=== PATIENT | female | born 1965 | race Caucasian/White ===

== ENCOUNTER → 2020-02-24 09:26 | Outpatient (BNVA) | payer OTHER, SELFPAY | PROVIDERS: PCP Internal Medicine; Visit Provider Orthopaedic Surgery | DX: M75.51 Bursitis of right shoulder (principal) | CPT/HCPCS: 20610; 99202; J1100 ==

== ENCOUNTER 2020-03-07 21:13 | Emergency (ER) | payer OTHER, SELFPAY ==
[2020-03-07 21:21] VITALS: BP 126/87; PULSE 87; RESP 20; TEMP 36.9; O2SAT 96; BMI 29.0
--- NOTE | 2020-03-07 21:34 | PC.NURSE ---
Family requesting to be contacted with updates, [place] [phone].
[2020-03-07 23:17] VITALS: BP 132/75; PULSE 77; RESP 18; O2SAT 98
--- NOTE | 2020-03-07 23:22 | ED_ITS ---
HPI - General Adult General Chief complaint: Fever Stated complaint: Covid Symptoms Time Seen by Provider: 03/07/20 22:43 Source: patient Mode of arrival: ambulatory Limitations: no limitations History of Present Illness HPI narrative: Patient comes to emergency room requesting to be tested for COVID-19. Patient states family member recently tested positive for COVID-19. Patient states that today she started complaining of subjective fever, dry cough, headache and body aches. Patient denies shortness of breath, no chest pain. MD complaint: COVID like symptoms Related Data Home Medications Medication Instructions Recorded Confirmed citalopram 20 mg tablet 20 mg PO DAILY 01/01/20 03/03/20 gabapentin 600 mg tablet 600 mg PO BID 01/01/20 03/03/20 lidocaine 5 % topical patch 1 patch TOPICAL DAILY PRN 01/01/20 03/03/20 omeprazole 40 mg capsule,delayed 40 mg PO DAILY 01/01/20 03/03/20 release sumatriptan succinate 25 mg tablet 25 mg PO DAILY tab 01/01/20 03/03/20 Previous Rx's Medication Instructions Recorded ibuprofen 600 mg tablet 600 mg PO Q8H PRN #90 tab 02/24/20 amitriptyline 25 mg tablet 25 mg PO BEDTIME 90 Days #90 tab 03/03/20 Allergies Allergy/AdvReac Type Severity Reaction Status Date / Time No Known Allergies Allergy Verified 03/07/20 21:17 [No Known Allergies*] Review of Systems Review of Systems: Constitutional : No Weight loss, subjective fever, chills, fatigue, generalized malaise ENT/Mouth : No Hearing loss, No Ear Pain, No Nasal Congestion, No Sinus Pain, No Hoarseness, complaining of sore throat, No Rhinorrhea, No Swallowing Difficulty Eyes: No Eye Pain, No Swelling, No Redness, No Foreign Body, No Discharge, No Vision Changes Cardiovascular : No Chest Pain, No SOB, No Dyspnea on Exertion, No Orthopnea, No Edema, No Palpitations Respiratory : Complaining of dry Cough, No Sputum, No Wheezing, No Smoke Exposure, No Dyspnea Gastrointestinal : No Nausea, No Vomiting, No Diarrhea, No Constipation, No a bdominal Pain, No Hematochezia, No Melena Genitourinary : no irregular bleeding, No Dysuria, No Urinary Frequency, No Hematuria, No Urinary Incontinence, No Urgency, No Flank Pain, No Urinary Flow Changes, No Hesitancy Musculoskeletal : No joint pain, complaining of Myalgias, No Joint Swelling Skin : No Skin Lesions, No rash Neuro : No Weakness, No Numbness, No Paresthesias, No Loss of Consciousness, No Dizziness, complaining of Headache Psych : No Anxiety/Panic, No Depression, No SI/HI/AH/VH, No Social Issues, Heme/Lymph: No Bruising, No Bleeding,No Lymphadenopathy Endocrine : No Polyuria, No Polydipsia, No Temperature Intolerance [facility] Past Medical History Medical History Bursitis of right shoulder Headache syndrome Shoulder pain, right Strain of right trapezius muscle Surgical History Ankle fracture, left Family History Family History Father No problems noted. Mother No problems noted. Brother No problems noted. Brother No problems noted. Brother No problems noted. Brother No problems noted. Brother No problems noted. Son No problems noted. Son No problems noted. Son No problems noted. Daughter No problems noted. Daughter No problems noted. Social History Social History Alcohol intake: never Smoking Status: Former smoker Advance Directives: No Advance Directives Information Provided: No Current occupational status: employed and unemployed Current occupation: right handed Physical Exam Vital Signs: Vital Signs: Last Vital Signs Temp 98.5 F 03/07/20 21:21 Pulse 77 03/07/20 23:17 Resp 18 03/07/20 23:17 BP 132/75 03/07/20 23:17 Pulse Ox 98 03/07/20 23:17 Body Mass Index 29.0 Appearance: Alert. Oriented X3. No acute distress. Eyes: Pupils equal, round and reactive to light. ENT: Pharynx normal. Neck: Normal inspection. Neck supple. No lymph nodes noted. No crepitus CVS: Normal heart rate and rhythm. Pulses normal. Normal S1 and S2 Respiratory: No respiratory distress. Breath sounds normal. No Wheezing. No rales Abdomen: Soft and nontender. No rigidity. No distention. good BS x4 Skin: Skin warm and dry. Normal skin color. Normal skin turgor. Extremities: No lower extremity edema. No lower extremity edema. No Lacerations. No Rash Neuro: Oriented X 3. No motor deficit. No sensory deficit. Moving all extermities. No slurred speech. Course Course Course Narrative: Patient's oxygen saturation 98% on room air, normal vitals. Patient discharged home. Patient was tested for COVID-19, explained to the patient that her results will be available within 72 hours and be called home if she tests positive. Discharge Plan Discharge Clinical Impression: Acute viral syndrome Patient Disposition: Home, Self-Care Instructions: Viral Syndrome (ED) Additional Instructions: You were tested for COVID-19. If he tests positive, the results will be communicated to you in the next 72 hours. In the meantime, remains self isolated, always very mask. Please follow-up with your primary care physician tomorrow. If you have any worsening or new symptoms, please return to the emergency room or call 911 Prescriptions: No Action omeprazole 40 mg capsule,delayed release(DR/EC) 40 mg PO DAILY RF: 0 gabapentin 600 mg tablet 600 mg PO BID RF: 0 lidocaine 5 % adhesive patch,medicated 1 patch topical DAILY PRNRF: 0 citalopram 20 mg tablet 20 mg PO DAILY RF: 0 sumatriptan succinate 25 mg tablet 25 mg PO DAILY RF: 0 amitriptyline 25 mg tablet 25 mg PO BEDTIME 90 Days Qty: 90 RF: 0 ibuprofen 600 mg tablet 600 mg PO Q8H PRN (Reason: pain) Qty: 90 RF: 1
[2020-03-08 00:15] LABS: Influenza A PCR NEGATIVE (Negative); Influenza B PCR NEGATIVE (Negative); Resp Syncy Virus RNA Qual PCR NEGATIVE (Negative)
[2020-03-08 00:20] LABS: SARS COV2 PCR INHOUSE POSITIVE (Negative)
== END 2020-03-07 23:34 | disposition home or self-care (01) ==
PROVIDERS: Emergency Provider Emergency Medicine; PCP Internal Medicine
DX: B34.9 Viral infection, unspecified (principal); R50.9 Fever, unspecified; Z20.822 Contact with and (suspected) exposure to COVID-19; Z79.899 Other long term (current) drug therapy; Z87.891 Personal history of nicotine dependence
CPT/HCPCS: 0241U; 36415; 99283

== ENCOUNTER → 2020-06-04 15:25 | Outpatient (BNVA) | payer OTHER, SELFPAY | PROVIDERS: PCP Internal Medicine; Visit Provider Anesthesiology | DX: M47.812 Spondylosis without myelopathy or radiculopathy, cervical region (principal); Z79.899 Other long term (current) drug therapy | CPT/HCPCS: 99212 ==

== ENCOUNTER 2020-07-01 14:16 | Outpatient (REF) | payer OTHER, SELFPAY ==
--- NOTE | ~2020-07-01 | XR_ITS ---
EXAMINATION: XR KNEE, RIGHT CLINICAL INFORMATION: Pain right knee. COMPARISON: None TECHNIQUE: Four views of the right knee. FINDINGS: Bones and soft tissues are normal. No fracture or joint effusion. Alignment is anatomic. Joint spaces are well maintained. No abnormal soft tissue calcification. XR/XR knee RT 4V IMPRESSION: Unremarkable right knee exam.
== END 2020-07-01 14:17 | disposition home or self-care (01) ==
LOC: HO.HMGCX 14:16
PROVIDERS: PCP Internal Medicine; Visit Provider Internal Medicine
DX: M25.561 Pain in right knee (principal)
CPT/HCPCS: 73564

== ENCOUNTER 2020-07-09 08:37 | Outpatient (REF) | payer OTHER, SELFPAY | END 2020-07-09 08:38 | disposition home or self-care (01) | LOC: HO.HOSX 08:37 | PROVIDERS: Visit Provider Physician Assistant | DX: Z13.89 Encounter for screening for other disorder (principal) ==

== ENCOUNTER 2020-08-03 15:25 | Emergency (ER) | payer OTHER, SELFPAY ==
--- NOTE | ~2020-08-03 | XR_ITS ---
EXAMINATION: XR CHEST CLINICAL INFORMATION: Chest pain COMPARISON: None TECHNIQUE: 2 views of the chest were obtained. FINDINGS: No significant abnormality is noted involving the heart, lungs, mediastinum, bony thorax or soft tissues. XR/XR chest 2V IMPRESSION: Unremarkable chest examination.
[2020-08-03 16:21] VITALS: BP 112/62; PULSE 88; RESP 18; TEMP 36.8; O2SAT 97; BMI 33.4
--- NOTE | 2020-08-03 17:59 | ED.BACK ---
HPI - Back Pain/Injury General Chief Complaint: Back Pain/Injury Stated Complaint: BACK PAIN Time Seen by Provider: 08/03/20 17:58 History of Present Illness HPI Narrative: Patient developed mid upper back pain today between the shoulder blades after physical therapy and she felt like she twisted the wrong way there, she does have pain with deep breath with certain movements and when she presses on her upper back, she has no chest pain no shortness of breath no numbness weakness or tingling no changes to bowel or bladder no dysuria Related Data Home Medications Medication Instructions Recorded Confirmed citalopram 20 mg tablet 20 mg PO DAILY 01/01/20 08/07/20 sumatriptan succinate 25 mg tablet 25 mg PO DAILY tab 01/01/20 08/07/20 Previous Rx's Medication Instructions Recorded gabapentin 600 mg tablet 600 mg PO TID 30 Days #90 tab 06/04/20 tizanidine 4 mg tablet 4 mg PO TID PRN 30 Days #90 tab 06/04/20 hydrocodone-acetaminophen 1 tab PO Q6H PRN #10 tab 08/03/20 ibuprofen 600 mg PO Q6H PRN #20 tab 08/03/20 omeprazole 40 mg capsule,delayed 40 mg PO DAILY 90 Days #90 cap 08/07/20 release amitriptyline 25 mg tablet 25 mg PO BEDTIME 90 Days #90 tab 08/14/20 Allergies Allergy/AdvReac Type Severity Reaction Status Date / Time No Known Allergies Allergy Verified 08/13/20 10:54 [No Known Allergies*] Review of Systems Review of Systems: positive for upper back pain with movement Negatives are no fever no chills no dizziness no weakness no fainting no feeling faint no headache no neck pain no chest pain no shortness of breath no palpitations no abdominal pain no dysuria no frequency no incontinence no skin rash no numbness weakness or tingling Yes all other systems are reviewed and are negative PMFSH Past Medical History Source: nursing notes reviewed Medical History Bursitis of right shoulder Headache syndrome Shoulder pain, right Spondylosis of cervical spine Strain of right trapezius muscle Surgical History Ankle fracture, left Family History Family History Father No problems noted. Mother No problems noted. Brother No problems noted. Brother No problems noted. Brother No problems noted. Brother No problems noted. Brother No problems noted. Son No problems noted. Son No problems noted. Son No problems noted. Daughter No problems noted. Daughter No problems noted. Other Mental health disorder Substance use disorder Social History Social History Housing: Apartment Alcohol intake: never Patient Tobacco Use Status: Former Tobacco user (quit 15 years ago) Second Hand Smoke Exposure: No Current occupational status: employed and unemployed Current occupation: right handed Physical Exam Vital Signs: Vital Signs: Last Vital Signs Temp 98.2 F 08/03/20 16:21 Pulse 88 08/03/20 16:21 Resp 18 08/03/20 16:21 BP 112/62 08/03/20 16:21 Pulse Ox 97 08/03/20 16:21 Body Mass Index 33.4 general appearance no distress Head is normocephalic atraumatic Neck is supple Chest is clear to auscultation bilateral no chest wall tenderness The abdomen soft nontender Extremities full range of motion x4 There is no pedal edema, there is no calf tenderness or swelling The back there is soft tissue tenderness in the upper back, there is no bony tenderness there are no rashes or wounds, pain is easily produced with movement, no CVA tenderness Skin no rashes Neuro no focal motor or sensory deficit, gait and balance are normal Course Course Course Narrative: Chest x-ray was normal, patient with musculoskeletal mid back pain after twisting the wrong way and physical therapy is treated with analgesic and discharge Discharge Plan Discharge Clinical Impression: Back strain Patient Disposition: Home, Self-Care Additional Instructions: You likely twisted her back the wrong way and now have muscle pain worse with movement in her back Chest x-ray was normal Follow with physical therapy and primary care physician Return any time if worse Prescriptions: New ibuprofen 600 mg tablet 600 mg PO Q6H PRN (Reason: pain) Qty: 20 RF: 0 hydrocodone-acetaminophen 5-325 mg tablet 1 tab PO Q6H PRN (Reason: pain) Qty: 10 RF: 0 No Action amitriptyline 25 mg tablet 25 mg PO BEDTIME 90 Days Qty: 90 RF: 0 citalopram 20 mg tablet 20 mg PO DAILY RF: 0 sumatriptan succinate 25 mg tablet 25 mg PO DAILY RF: 0 omeprazole 40 mg capsule,delayed release(DR/EC) 40 mg PO DAILY 90 Days Qty: 90 RF: 0 gabapentin 600 mg tablet 600 mg PO TID 30 Days Qty: 90 RF: 12 tizanidine 4 mg tablet 4 mg PO TID PRN (Reason: muscle spasticity) 30 Days Qty: 90 RF: 12 Interventions: ED Discharge Assessment Last Done: 08/03/20 19:08 Discharge Date/Time: 08/03/20 19:09
[2020-08-03] MEDS: Ketorolac Tromethamine 30 MG/ML VIAL IM (19:00)
== END 2020-08-03 19:09 | disposition home or self-care (01) ==
PROVIDERS: Emergency Provider Internal Medicine; PCP Internal Medicine
DX: S29.012A Strain of muscle and tendon of back wall of thorax, initial encounter (principal); R07.9 Chest pain, unspecified; X50.1XXA Overexertion from prolonged static or awkward postures, initial encounter; Y93.9 Activity, unspecified; Y92.9 Unspecified place or not applicable; Y99.9 Unspecified external cause status
CPT/HCPCS: 71046; 96372; 99284; J1885

== ENCOUNTER → 2020-08-13 10:44 | Outpatient (BNVA) | payer OTHER, SELFPAY | PROVIDERS: PCP Internal Medicine; Visit Provider Orthopaedic Surgery | DX: M25.561 Pain in right knee (principal) | CPT/HCPCS: 20610; 99212; J1100 ==

== ENCOUNTER 2020-08-19 16:00 | Outpatient (RCR) | payer OTHER, SELFPAY ==
--- NOTE | 2020-03-25 18:27 | MHC.PT.EP ---
[facility] [place] Office [place] Office [place] Office [address] Virgilio King [address] [phone] F: [phone] F: [phone] F: [phone] F: [phone] Physical Therapy Plan of Care Date of Evaluation: 03/25/20 Date of Surgery: Diagnosis: Bursitis R shoulder. Assessment: Pt is a 54 y.o female referred to PT for R shoulder bursitis who presents with signs and sx consistent with R shoulder dysfunction resulting in decreased tolerance and ability to perform reaching high shelves, dressing pullovers, pushing and pulling with affected UE, reaching neck and back for hygiene/ dressing and carrying objects of weight as well as disturbed sleep secondary to decreased UE strength and ROM, decreased posture, increased tissue tension and pain. Pt is deemed an appropriate candidate to receive skilled PT in order to address her physical limitations to improve her functional ability. Frequency and Duration: The patient will be seen 2 x /wk x 5 wks. Short Term Goals: In 1 week: initiate HEP with evidence of compliance. In 3 weeks: Pt will report baseline pain improved to at most 4/10, initial 8/10. In 3 weeks: AROM flexion improved to > 149 degrees with managed Sx; initial: 105 and painful. Penitentiary Goals: In 5 weeks: i with home program. in 5 weeks: Pt will be able to place objects on high shelf with managed Sx; initial unable. Treatment Plan: Modalities to reduce pain, spasms and effusion. Manual therapy to restore motion and function. Therapeutic exercise to improve strength and flexibility. Neuromuscular re-education for posture and balance. Therapeutic activities to return to functional activities of daily living. Electronically signed by: Alli Mittal PT. Please sign and return to therapist. Thank you for your referral.
--- NOTE | 2020-08-27 10:34 | MHC.PT.DC ---
[facility] [place] Office [place] Office [place] Office [address] [phone] F: [phone] F: [phone] F: [phone] F: [phone] Physical Therapy Discharge Report Diagnosis: Bursitis R shoulder. Date of Surgery: Date of Evaluation: 03/25/20 Date of Discharge: 08/27/20 Treatments to Date: 18 Cancellations to Date: 18 No Shows to Date: 2 Discharge Status: Recommend MD Follow-up Discharge Summary: The patient overall reported no difference in her shoulder with this physical therapy plan of care. She had poor attendance with her therapy visits and seems to be significantly limited by behavior and psychological impairments. She is independent with her home exercise program and is discharged from this physical therapy plan of care at this time. Electronically signed by: Dawn Townsend PT, DPT Please sign and return to therapist. Thank you for your referral.
== END 2020-08-27 10:34 | disposition home or self-care (01) ==
LOC: HO.PT 16:00
PROVIDERS: PCP Internal Medicine; Visit Provider Orthopaedic Surgery
DX: M75.51 Bursitis of right shoulder (principal)
CPT/HCPCS: 97012; 97110; 97112; 97140; 97161; 97164

== ENCOUNTER 2020-11-05 14:00 | Outpatient (RCR) | payer OTHER, SELFPAY ==
--- NOTE | 2020-10-02 16:16 | MHC.PT.EP ---
[facility] [place] Office [place] Office [place] Office [address] [phone] F: [phone] F: [phone] F: [phone] F: [phone] Physical Therapy Plan of Care Date of Evaluation: Date of Surgery: NA Diagnosis: R KNEE PAIN Assessment: Pt IS 55 YO F REFERRED TO PT WITH KNEE PAIN. Pt PRESENTS WITH LIMITED KNEE ROM AND DECREASED LE STRENGTH. Pt HAS HAD PT FOR KNEE IN PAST WITHOUT RELIEF. Pt WOULD LIKE TO AVOID FURTHER INJECTIONS. SHOULD BENEFIT FROM PT TO HELP IMPROVE ROM/STRENGTH AND PROPRIOCEPTION Frequency and Duration: The patient will be seen 2X/WK X 4 WKS Short Term Goals: 1. INCREASED AWARENESS KNEE CARE 2. I HEP WITH DC EX PLAN Usp Goals: 1. DECREASED KNEE PAIN AT LEAST 50% WITH ADLS 2. INCREASED KNEE ROM 10-20 DEGREES Treatment Plan: Modalities to reduce pain, spasms and effusion. Manual therapy to restore motion and function. Therapeutic exercise to improve strength and flexibility. Neuromuscular re-education for posture and balance. Therapeutic activities to return to functional activities of daily living. Electronically signed by: JESSY GALLAGHER PT Please sign and return to therapist. Thank you for your referral.
--- NOTE | 2020-12-17 10:43 | MHC.PT.DC ---
[facility] [place] Office [place] Office [place] Office [address] Virgilio King [address] [phone] F: [phone] F: [phone] F: [phone] F: [phone] Physical Therapy Discharge Report Diagnosis: R KNEE PAIN Date of Surgery: NA Date of Evaluation: 10/02/20 Date of Discharge: 12/17/20 Treatments to Date: 4 Cancellations to Date: 7 No Shows to Date: Discharge Status: Patient Elected to Stop Recommend MD Follow-up Visit Non-compliance Discharge Summary: Pt LAST SEEN ON 11/05/20. 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 OF NOTE Pt HAS HAD 4 VISITS AND 7 CANCELS SINCE THE INIT EVAL. PER INTAKE EVAL Pt HAS HAD PT IN PAST WITHOUT SIGNIF RELIEF. DID REPORT SOME RELIEF WITH KT AT ONE OF HER SESSIONS Electronically signed by: JESSY GALLAGHER PT Please sign and return to therapist. Thank you for your referral.
== END 2020-12-17 10:44 | disposition home or self-care (01) ==
LOC: HO.PT 14:00
PROVIDERS: PCP Internal Medicine; Visit Provider Orthopaedic Surgery
DX: M25.561 Pain in right knee (principal)
CPT/HCPCS: 97110; 97162; 97530

== ENCOUNTER → 2021-01-22 11:50 | Outpatient (BNVA) | payer OTHER, SELFPAY | PROVIDERS: PCP Internal Medicine; Visit Provider Orthopaedic Surgery | DX: M25.561 Pain in right knee (principal); M25.562 Pain in left knee; G89.29 Other chronic pain | CPT/HCPCS: 99212 ==

== ENCOUNTER → 2021-03-08 14:22 | Outpatient (BNVA) | payer OTHER, SELFPAY | PROVIDERS: PCP Internal Medicine; Visit Provider Anesthesiology | DX: M25.561 Pain in right knee (principal); M25.562 Pain in left knee; G89.29 Other chronic pain | CPT/HCPCS: 99212 ==

== ENCOUNTER → 2021-12-29 15:23 | Outpatient (BNVA) | payer OTHER, SELFPAY | PROVIDERS: PCP Internal Medicine; Visit Provider Anesthesiology | DX: M25.561 Pain in right knee (principal); M25.562 Pain in left knee; M17.0 Bilateral primary osteoarthritis of knee; E66.01 Morbid (severe) obesity due to excess calories; Z68.38 Body mass index [BMI] 38.0-38.9, adult | CPT/HCPCS: 99212 ==

== ENCOUNTER 2022-03-01 05:56 | Outpatient (REF) | payer OTHER, SELFPAY | END 2022-03-01 05:57 | disposition home or self-care (01) | LOC: CF 05:56 | PROVIDERS: Visit Provider Anesthesiology | DX: Z13.89 Encounter for screening for other disorder (principal) ==

== ENCOUNTER 2022-03-29 06:15 | Outpatient (REF) | payer OTHER, SELFPAY | END 2022-03-29 06:16 | disposition home or self-care (01) | LOC: CF 06:15 | PROVIDERS: Visit Provider Anesthesiology | DX: Z13.89 Encounter for screening for other disorder (principal) ==

== ENCOUNTER 2022-10-05 14:15 | Outpatient (AMB) | payer OTHER, SELFPAY ==
--- NOTE | 2022-10-05 14:23 | AM.OFFWIN_ITS ---
Intake Vital Signs 10/05/22 14:24 Height 5 ft 6 in Weight 238 lb BMI 38.4 BP 118/70 Blood Pressure Location Rt brachial Position Sitting Pulse 72 Pulse Source Pulse Oximeter Temp 97.3 F Temp Source Temporal Artery Scan Pulse Oximetry (%) 98 Oxygen Delivery Method Room Air Intake Visit Reasons: EST/right ankle twisted/swelling Intake Note: Pt is here c/o right ankle swelling. Pt states she fell last night. Patient Tobacco Use Status: Former Tobacco user (quit 15 years ago) Allergies No Known Allergies [No Known Allergies*] Allergy (Verified 10/05/22 15:16) Medication List - Last Reconciled 10/05/22 by Alex Storm MD amitriptyline 25 mg PO BEDTIME 90 days bupropion HCl 150 mg PO QAM celecoxib 200 mg PO DAILY 90 days citalopram 20 mg PO DAILY duloxetine 30 mg PO BID gabapentin 600 mg PO TID 30 days mirtazapine 7.5 mg PO BEDTIME PRN mometasone-formoterol 200-5 mcg/actuation (Dulera) 2 puffs inhalation BID 30 days omeprazole 40 mg PO DAILY 90 days prazosin 5 mg PO BEDTIME sumatriptan succinate 25 mg PO DAILY 30 days tizanidine 4 mg PO TID PRN trazodone 50 - 100 mg PO BEDTIME PRN Do you need a note to return to daycare/school/sports/work: No HPI EST/right ankle twisted/swelling HPI Details 57-year-old female presents to the office for a sick visit. Patient tripped and fell at home yesterday. In the process she has injured her right foot. The foot is swollen and she is not able to bear weight. [facility] Medical History Bursitis of right shoulder Headache syndrome Shoulder pain, right Spondylosis of cervical spine Strain of right trapezius muscle Surgical History Ankle fracture, left Family History Father No problems noted. Mother No problems noted. Brother No problems noted. Brother No problems noted. Brother No problems noted. Brother No problems noted. Brother No problems noted. Son No problems noted. Son No problems noted. Son No problems noted. Daughter No problems noted. Daughter No problems noted. Other Mental health disorder Substance use disorder Social History Housing: Apartment Alcohol intake: never Patient Tobacco Use Status: Former Tobacco user (quit 15 years ago) e-Cigarette/Vaping Use: Never Used Second Hand Smoke Exposure: No Current occupational status: employed and unemployed Current occupation: right handed Cognitive needs: No Hearing needs: No Vision needs: Yes Physical Exam Vital Signs: Last Vital Signs Temp 97.3 F 10/05/22 14:24 Pulse 72 10/05/22 14:24 BP 118/70 10/05/22 14:24 Pulse Ox 98 10/05/22 14:24 Oxygen Delivery Method Room Air 10/05/22 14:24 BMI result Body Mass Index 38.4 Extrem Other: Right foot: Bruising and swelling especially on the lateral margin of the foot. Unable to bear weight. Assessment & Plan Assessment & Plan (1) Contusion of foot, right: Code(s): S90.31XA - Contusion of right foot, initial encounter Plan: Displaced fracture the 5th metatarsal. Boot was applied. Orthopedic appointment has been requested. Anti-inflammatories called in. If symptoms not better to follow-up here. Orders: Orders XR foot RT min 3V Today S90.31XA - Contusion of right foot, initial encounter Coding Level of Care Code Est Pt Level 4 (92777) Diagnoses Contusion of foot, right S90.31XA
[2022-10-05 14:24] VITALS: BP 118/70; PULSE 72; TEMP 36.3; O2SAT 98; BMI 38.4
== END 2022-10-05 16:56 | disposition home or self-care (01) ==
PROVIDERS: PCP Internal Medicine; Visit Provider Internal Medicine
DX: S90.31XA Contusion of right foot, initial encounter (principal)
CPT/HCPCS: 99214

== ENCOUNTER 2022-10-05 14:40 | Outpatient (REF) | payer OTHER, SELFPAY ==
--- NOTE | ~2022-10-05 | XR_ITS ---
EXAMINATION: XR FOOT, RIGHT CLINICAL INFORMATION: Right foot contusion. COMPARISON: None available. TECHNIQUE: AP, lateral, and oblique views of the right foot. An indicator arrow points to the lateral foot. FINDINGS: There is an acute, mildly displaced spiral type fracture of the distal diaphysis of the fifth metatarsal. A nondisplaced oblique fracture of the adjacent fourth metatarsal seen as well. The remainder the digits are intact. The tarsal bones are normally aligned. There is mild soft tissue swelling. XR/XR foot RT min 3V IMPRESSION: Acute fractures of the fourth and fifth metatarsals as detailed above.
== END 2022-10-05 14:41 | disposition home or self-care (01) ==
LOC: HO.HMGCX 14:40
PROVIDERS: PCP Internal Medicine; Visit Provider Internal Medicine
DX: S90.31XA Contusion of right foot, initial encounter (principal)
CPT/HCPCS: 73630

== ENCOUNTER 2022-10-12 05:06 | Outpatient (REF) | payer OTHER, SELFPAY ==
--- NOTE | ~2022-10-12 | XR_ITS ---
EXAMINATION: XR FOOT, RIGHT CLINICAL INFORMATION: Right foot pain COMPARISON: 10/05/2022 TECHNIQUE: AP, lateral, and oblique views of the right foot. FINDINGS: There is no significant interval change in appearance of spiral fracture through the diaphysis of fourth metatarsal bone and comminuted mildly displaced fracture through the fifth metatarsal diaphysis. There are small butterfly fragments seen adjacent to the fifth metatarsal bone fracture. XR/XR foot RT min 3V IMPRESSION: No interval change
== END 2022-10-12 05:07 | disposition home or self-care (01) ==
LOC: HO.HOSX 05:06
PROVIDERS: Visit Provider Physician Assistant
DX: S92.341A Displaced fracture of fourth metatarsal bone, right foot, initial encounter for closed fracture (principal); S92.354A Nondisplaced fracture of fifth metatarsal bone, right foot, initial encounter for closed fracture
CPT/HCPCS: 73630

== ENCOUNTER 2022-10-12 12:37 | Outpatient (AMB) | payer OTHER, SELFPAY ==
--- NOTE | 2022-10-12 12:48 | A.OFFVIS_ITS ---
Intake Vital Signs 10/12/22 12:53 Height 5 ft 6 in Weight 238 lb BMI 38.4 Intake Visit Reasons: FC-Displaced fifth metarsal fracture, foot Intake Note: Radha is a 57 year old female who presents today for a fracture care appointment DOI 10/04/22. Patient reports getting an apple she got light headed and went down to the floor. When she got up her right foot started to throb in pain. She states that the boot is okay but it does cause her pain when she is bearing weight. Denies numbness and tingling. Allergies No Known Allergies [No Known Allergies*] Allergy (Verified 10/12/22 12:53) HPI FC-Displaced fifth metarsal fracture, foot HPI Details 57-year-old female who presents in the office today for an evaluation of right foot pain. The patient [facility]2022 status post a trip and fall at home which occurred on 10/04/2022. She states she was getting an apple when she became lightheaded and fell to the floor. X-rays of the right foot were obtained. She was placed in a walking boot and referred to orthopedics. She states the boot is okay, but it does cause her pain when she bears weight. She denies numbness or tingling. PFSH Medical History Bursitis of right shoulder Headache syndrome Shoulder pain, right Spondylosis of cervical spine Strain of right trapezius muscle Surgical History Ankle fracture, left Family History Father No problems noted. Mother No problems noted. Brother No problems noted. Brother No problems noted. Brother No problems noted. Brother No problems noted. Brother No problems noted. Son No problems noted. Son No problems noted. Son No problems noted. Daughter No problems noted. Daughter No problems noted. Other Mental health disorder Substance use disorder Social History Housing: Apartment Alcohol intake: never Patient Tobacco Use Status: Former Tobacco user (quit 15 years ago) e-Cigarette/Vaping Use: Never Used Second Hand Smoke Exposure: No Current occupational status: employed and unemployed Current occupation: right handed Cognitive needs: No Hearing needs: No Vision needs: Yes Review of Systems Const All systems reviewed & are unremarkable except as noted in HPI and below Physical Exam Vital Signs: BMI result Body Mass Index 38.4 Const General: cooperative and no acute distress Orientation/consciousness: patient oriented x3 Resp Effort & Inspection: normal respiratory effort and able to speak in complete sentences Cardio Peripheral pulses: Peripheral pulses 2+ throughout Skin General skin exam: no rashes or lesions noted Neuro General: patient oriented x3 Extrem Other: Right foot: Lateral sided edema. Scattered ecchymosis at the mid-foot to the base of the toes. Able to dorsiflex and plantarflex but is limited due to pain. Tenderness to palpation at the 4th and 5th metatarsal fracture sites. Sensation intact. Pedal pulse intact. Capillary refill is brisk. Assessment & Plan Assessment & Plan (1) Fracture of fourth metatarsal bone of right foot: Code(s): S92.341A - Displaced fracture of fourth metatarsal bone, right foot, initial encounter for closed fracture (2) Nondisplaced fracture of fifth right metatarsal bone: Code(s): S92.354A - Nondisplaced fracture of fifth metatarsal bone, right foot, initial encounter for closed fracture Plan Ms. Carranza is a 57-year-old female who presents in the office today for an evaluation of right foot pain. The patient presented [facility] 10[facility]2022 status post a trip and fall at home which occurred on 10/04/2022. She states she was getting an apple when she became lightheaded and fell to the floor. X-rays of the right foot were obtained. She was placed in a walking boot and referred to orthopedics. She states the boot is okay, but it does cause her pain when she bears weight. She denies numbness or tingling. The patient presented in the office in a short walking boot. She will remain in the short walking boot and weight bear as tolerated. I gave her a prescription for a shower seat to assist her to bath safely. Follow up will be in 4 weeks with repeat x-rays, or sooner if needed. X-rays of the right foot which were obtained while in the office today and were reviewed by me, Pastora Dove PA-C, redemonstarated 4th and 5th metatarsals fractures. X-rays of the right foot, obtained on 10/05/2022, revealed: Acute fractures of the fourth and fifth metatarsals. Orders: Orders XR foot RT min 3V 10/12/22 M79.673 - Pain in unspecified foot Medications: New [Shower seat] As directed Right foot 4th and 5th metatarsal fractures 1 ea 0RF Patient Instructions: Scribed for Pastora Dove PA-C by Clari Yoder medical laboratory assistant, on 10/12/2022 at 12:39 pm, EST. Coding Level of Care Code New Pt Level 4 (92128) Diagnoses Fracture of fourth metatarsal bone of right foot S92.341A Nondisplaced fracture of fifth right metatarsal bone S92.354A
[2022-10-12 12:53] VITALS: BMI 38.4
== END 2022-10-12 14:38 | disposition home or self-care (01) ==
LOC: HO.HOS 12:37
PROVIDERS: PCP Internal Medicine; Visit Provider Physician Assistant
DX: S92.344A Nondisplaced fracture of fourth metatarsal bone, right foot, initial encounter for closed fracture (principal); S92.351A Displaced fracture of fifth metatarsal bone, right foot, initial encounter for closed fracture
CPT/HCPCS: 99213

== ENCOUNTER 2023-06-16 12:54 | Outpatient (AMB) | payer OTHER, SELFPAY ==
[2023-06-16 13:01] VITALS: BP 126/76; PULSE 85; O2SAT 96; BMI 41.6
--- NOTE | 2023-06-16 13:01 | A.OFFPC_ITS ---
Vital Signs 06/16/23 13:01 Height 5 ft 6 in Weight 258 lb BMI 41.6 BP 126/76 Blood Pressure Location Rt brachial Position Sitting Pulse 85 Pulse Source Pulse Oximeter Pulse Oximetry (%) 96 Oxygen Delivery Method Room Air Intake Visit Reasons: Asthma follow-up Allergies No Known Allergies [No Known Allergies*] Allergy (Verified 06/16/23 13:03) Medication List - Last Reconciled 06/16/23 by Harris Fernandez MD amitriptyline 25 mg PO BEDTIME 90 days bupropion HCl XL 150 mg PO QAM celecoxib 200 mg PO DAILY 90 days citalopram 20 mg PO DAILY duloxetine 30 mg PO BID gabapentin 600 mg PO TID 30 days mirtazapine 7.5 mg PO BEDTIME PRN mometasone-formoterol 200-5 mcg/actuation (Dulera) 2 puffs inhalation BID 30 days omeprazole 40 mg PO DAILY 90 days prazosin 5 mg PO BEDTIME [Shower seat As directed Right foot 4th and 5th metatarsal fractures ] sumatriptan succinate 25 mg PO DAILY 30 days tizanidine 4 mg PO TID PRN trazodone 50 - 100 mg PO BEDTIME PRN Tobacco use date assessed: 06/16/23 Dental Screening Dental Screen Date: 06/16/23 Did you have a dental visit in the last 12 months?: Yes Did you have a dental problem in the last 6 months where you did not have access to dental care?: No Was dental information given to patient?: Patient has dentist HPI Asthma follow-up HPI Details Patient is a 37-year-old female came in today for her follow-up appointment I see that she has not had labs in a while We will be booking physical exam in three-month patient is to do labs before visit fasting She has Impaired fasting sugar BMI is elevated at 41.6 patient is trying to control her diet and lose weight Asthma: Manageable with maintenance inhaler patient is on Dulera and ProAir as needed GERD: Stable with omeprazole . Migraine headache: Continue amitriptyline 25 mg at night and sumatriptan as needed for headache. Psychiatric medication through Psychiatry Patient has history of PTSD, major depression, anxiety I have printed her medication list and handed to her so she can reviewe it with her psychiatrist I see number of psychiatric medications on her medication list and she is not sure what she is taking Muscle relaxer is through pain management along with gabapentin Multiple joint arthritis feeling better with Celebrex 200 mg daily PFSH Medical History Spondylosis of cervical spine Bursitis of right shoulder Headache syndrome Strain of right trapezius muscle Shoulder pain, right Surgical History Ankle fracture, left Family History Father No problems noted. Mother No problems noted. Brother No problems noted. Brother No problems noted. Brother No problems noted. Brother No problems noted. Brother No problems noted. Son No problems noted. Son No problems noted. Son No problems noted. Daughter No problems noted. Daughter No problems noted. Other Mental health disorder Substance use disorder Social History Housing: Apartment Alcohol intake: never Patient Tobacco Use Status: Former Tobacco user e-Cigarette/Vaping Use: Never Used Second Hand Smoke Exposure: No service: No Current occupational status: employed and unemployed Current occupation: right handed Cognitive needs: No Hearing needs: No Vision needs: Yes Questionnaire PHQ-9 Over the last 2 weeks, how often have you been bothered by any of the following problems? 1. Little interest or pleasure in doing things: several days 2. Feeling down, depressed, or hopeless: more than half the days 3. Trouble falling or staying asleep, or sleeping too much: nearly every day 4. Feeling tired or having little energy: more than half the days 5. Poor appetite or overeating: more than half the days 6. Feeling bad about yourself - or that you are a failure or have let yourself or your family down: several days 7. Trouble concentrating on things, such as reading the newspaper or watching television: not at all 8. Moving or speaking so slowly that other people could have noticed. Or the opposite - being so fidgety or restless that you have been moving around a lot more than usual: not at all 9. Thoughts that you would be better off or of hurting yourself in some way: not at all Total score: 11 Depression Screening Interpretation: Positive Depression Screening Follow-up: Existing condition and In treatment Depression Screening Done: Yes 45459 - PHQ-9 Billing: Yes Source: Developed by Drs. Anton Bocanegra, Aline Villegas, Martín Dickson and colleagues, with an educational ryan from [employer]. Thrive Questionnaire Date Thrive assessed: 06/16/23 I am a: Patient What is your living situation today?: I have a steady place to live Within the past 12 months, did the food you bought not last and you didn't have the money to get more?: Never true Within the past 12 months, did you worry whether your food would run out before you got money to buy more?: Never true Do you have trouble paying for medicines?: No Do you have trouble getting transportation to medical appointments?: No Do you have trouble paying your heating and electricity bill?: Yes Do you have trouble taking care of your child, family member or friend?: No Do you have trouble with day-to-day activities such as bathing, preparing meals, shopping, managing finances, etc.?: No Are you currently unemployed and looking for a job?: No Are you interested in more education?: No Please select the resources that you would like help with: None Currently or been in a relationship where the following occur: no concerns reported THRIVE Score: 1 AUDIT C Alcohol Use Questionnaire (AUDIT-C) 1. How often do you have a drink containing alcohol?: Never 3. How often do you have six or more drinks on one occasion?: Never Total Score: 0 PETE-7 AMB Questionnaire PETE-7 Date PETE - 7 assessed: 06/16/23 Feeling nervous, anxious, or on edge: 2 = More than half the days Not being able to stop or control worryin = Several days Worrying too much about different things: 1 = Several days Trouble relaxin = More than half the days Being so restless that it is hard to sit still: 2 = More than half the days Becoming easily annoyed or irritable: 2 = More than half the days Feeling afraid as if something awful might happen: 1 = Several days Total PETE-7 score (0-4 normal; 5-9 mild; 10-14 moderate; 15-21 severe): 11 Source: Developed by Drs. Anton L. SahraAline milligan, Martín Dickson and colleagues, with an educational ryan from [employer]. PETE-7 Assessment Billing PETE-7 Assessment Tool: PETE-7 Assessment 10724 Review of Systems Const Denies chills and Denies fever(s) ENT Denies epistaxis and Denies nasal discharge Card Denies chest pain Resp Denies chest congestion, Denies cough and Denies hemoptysis GI Denies diarrhea and Denies nausea Skin/Breast Denies rash Neuro Reports no additional complaints Psych Reports no additional complaints Endo Reports no additional complaints Physical exam (Primary Care) Vital Signs: Last Vital Signs Pulse 85 06/16/23 13:01 BP 126/76 06/16/23 13:01 Pulse Ox 96 06/16/23 13:01 Oxygen Delivery Method Room Air 06/16/23 13:01 BMI result Body Mass Index 41.6 Tobacco/Smoking Status: Tobacco use Status Tobacco use date assessed 06/16/23 06/16/23 13:06 Patient Tobacco Use Status Former Tobacco user 06/16/23 13:06 e-Cigarette/Vaping Use Never Used 06/16/23 13:06 PHQ-9: PHQ-9 Score PHQ-9: Total score 11 06/16/23 13:23 Depression Screening Interpretation: Positive Depression Screening Follow-up: Existing condition and In treatment Thrive Assessment: Date of Thrive Assessment Date Thrive assessed 06/16/23 06/16/23 13:23 Currently or been in a relationship where the following occur: no concerns reported Const General: cooperative, comfortable and no acute distress Orientation/consciousness: patient oriented x3 HENMT Head: Yes normocephalic Eyes General: appearance normal, both eyes and all related structures Neck Neck: Yes supple Resp Effort & Inspection: normal respiratory effort, no cough and no stridor Cardio Rhythm: regular rhythm Heart sounds: S1 normal heart sound present and S2 normal heart sound present Skin General skin exam: turgor normal Neuro General: patient oriented x3, tone normal and moves all extremities Extrem Right lower extremity: no edema Left lower extremity: no edema Assessment and Plan Assessment & Plan (1) Headache syndrome: Code(s): G44.89 - Other headache syndrome (2) Dyspepsia: Code(s): R10.13 - Epigastric pain (3) Chronic pain of both knees: Code(s): M25.561 - Pain in right knee; M25.562 - Pain in left knee; G89.29 - Other chronic pain (4) Asthma, moderate persistent: Code(s): J45.40 - Moderate persistent asthma, uncomplicated Qualifiers: Asthma complication type: uncomplicated Qualified Code(s): J45.40 - Moderate persistent asthma, uncomplicated (5) PTSD (post-traumatic stress disorder): Code(s): F43.10 - Post-traumatic stress disorder, unspecified (6) Major depress dis, severe: Code(s): F32.2 - Major depressive disorder, single episode, severe without psychotic features Plan Patient is a 37-year-old female came in today for her follow-up appointment I see that she has not had labs in a while We will be booking physical exam in three-month patient is to do labs before visit fasting She has Impaired fasting sugar BMI is elevated at 41.6 patient is trying to control her diet and lose weight Asthma: Manageable with maintenance inhaler patient is on Dulera and ProAir as needed GERD: Stable with omeprazole . Migraine headache: Continue amitriptyline 25 mg at night and sumatriptan as needed for headache. Psychiatric medication through Psychiatry Patient has history of PTSD, major depression, anxiety I have printed her medication list and handed to her so she can reviewe it with her psychiatrist I see number of psychiatric medications on her medication list and she is not sure what she is taking Muscle relaxer is through pain management along with gabapentin Multiple joint arthritis feeling better with Celebrex 200 mg daily Orders: Orders Complete Blood Count Auto Diff Today F32.2 - Major depressive disorder, single episode, severe without psychotic features, F43.10 - Post-traumatic stress disorder, unspecified, G44.89 - Other headache syndrome, G89.29 - Other chronic pain, J45.40 - Moderate persistent asthma, uncomplicated, M25.561 - Pain in right knee, M25.562 - Pain in left knee, R10.13 - Epigastric pain TSH reflex Free T4 Today F32.2 - Major depressive disorder, single episode, severe without psychotic features, F43.10 - Post-traumatic stress disorder, unspecified, G44.89 - Other headache syndrome, G89.29 - Other chronic pain, J45.40 - Moderate persistent asthma, uncomplicated, M25.561 - Pain in right knee, M25.562 - Pain in left knee, R10.13 - Epigastric pain Vitamin D 25-OH (D2 and D3) Today F32.2 - Major depressive disorder, single episode, severe without psychotic features, F43.10 - Post-traumatic stress disorder, unspecified, G44.89 - Other headache syndrome, G89.29 - Other chronic pain, J45.40 - Moderate persistent asthma, uncomplicated, M25.561 - Pain in right knee, M25.562 - Pain in left knee, R10.13 - Epigastric pain Comprehensive [place]. Panel Fast Today F32.2 - Major depressive disorder, single episode, severe without psychotic features, F43.10 - Post-traumatic stress disorder, unspecified, G44.89 - Other headache syndrome, G89.29 - Other chronic pain, J45.40 - Moderate persistent asthma, uncomplicated, M25.561 - Pain in right knee, M25.562 - Pain in left knee, R10.13 - Epigastric pain Lipid Panel Today F32.2 - Major depressive disorder, single episode, severe without psychotic features, F43.10 - Post-traumatic stress disorder, unspecified, G44.89 - Other headache syndrome, G89.29 - Other chronic pain, J45.40 - Moderate persistent asthma, uncomplicated, M25.561 - Pain in right knee, M25.562 - Pain in left knee, R10.13 - Epigastric pain Hemoglobin A1c Today F32.2 - Major depressive disorder, single episode, severe without psychotic features, F43.10 - Post-traumatic stress disorder, unspecified, G44.89 - Other headache syndrome, G89.29 - Other chronic pain, J45.40 - Moderate persistent asthma, uncomplicated, M25.561 - Pain in right knee, M25.562 - Pain in left knee, R10.13 - Epigastric pain Coding Level of Care Code Est Pt Level 4 (92562) Diagnoses Headache syndrome G44.89 Dyspepsia R10.13 Chronic pain of both knees M25.561; M25.562; G89.29 Moderate persistent asthma without complication J45.40 Asthma complication type: uncomplicated PTSD (post-traumatic stress disorder) F43.10 Major depress dis, severe F32.2 Additional Codes PETE-7 Assessment Billing - PETE-7 Assessment Tool: PETE-7 Assessment 04037 ([id number])
== END 2023-06-16 14:02 | disposition home or self-care (01) ==
PROVIDERS: PCP Internal Medicine; Visit Provider Internal Medicine
DX: G44.89 Other headache syndrome (principal); R10.13 Epigastric pain; F32.2 Major depressive disorder, single episode, severe without psychotic features; M25.561 Pain in right knee; M25.562 Pain in left knee; G89.29 Other chronic pain; J45.40 Moderate persistent asthma, uncomplicated; F43.10 Post-traumatic stress disorder, unspecified
CPT/HCPCS: 99214

== ENCOUNTER 2023-06-21 14:30 | Outpatient (REF) | payer OTHER, SELFPAY ==
[2023-06-21 16:09] LABS: MANUAL DIFF FLAG NO
[2023-06-21 16:21] LABS: Basophils Absolute Auto 0.1 X10*3/uL (0.0-0.2); Basophils Percent Auto 0.8 % (0-2); Eosinophils Absolute Auto 0.2 X10*3/uL (0.0-0.4); Eosinophils Percent Auto 2.3 % (0-4); Hematocrit 45.1 % (37.0-47.0); Hemoglobin 15.1 g/dl (12.0-16.0); Imm Gran Abs Auto 0.04 X10*3/uL (0.00-0.03); Imm Gran Pct Auto 0.6 % (0.0-0.4); Lymphocytes Absolute Auto 2.3 X10*3/uL (1.2-4.9); Lymphocytes Percent Auto 35.4 % (20-40); Mean Corpuscular HGB Conc 33.5 g/dl (31.0-35.0); Mean Corpuscular Hemoglobin 29.8 pg (27.0-33.0); Mean Platelet Volume 12.4 fL (9.4-12.3); Monocytes Absolute Auto 0.4 X10*3/uL (0.1-1.2); Monocytes Percent Auto 5.9 % (2-11); Neutrophils Absolute Auto 3.5 x10*3/uL (2.0-8.3); Platelet Count 232 X10*3/uL (160-400); Red Blood Count 5.07 X10*6/uL (4.20-5.50); White Blood Count 6.4 X10*3/uL (4.8-10.8)
[2023-06-21 16:59] LABS: Alanine Aminotransferase 41 U/L (0-31); Albumin Level 4.6 g/dL (3.5-5.0); Alkaline Phosphatase 81 U/L (39-117); Anion Gap 13 (12-20); Aspartate Amino Transferase 29 U/L (5-31); Bilirubin Total 0.5 mg/dL (0.0-1.0); Blood Urea Nitrogen 11 mg/dL (9-16); Calcium 9.3 mg/dL (8.4-10.2); Carbon Dioxide 28 mmol/L (22-29); Chloride 105 mmol/L (96-108); Cholesterol 197 mg/dL (<200); Estimated Glomerular Filt Rate 50; Glucose Fasting 95 mg/dL (60-99); HDL Cholesterol 31 mg/dL (>40); LDL Cholesterol Calculated 122 mg/dL (<100); Potassium 4.9 mmol/L (3.3-5.1); Sodium 141 mmol/L (135-145); Total Protein 7.3 g/dL (6.5-8.0); Triglycerides 222 mg/dL (<150)
[2023-06-21 17:16] LABS: TSH reflex Free T4 1.96 uIU/mL (0.32-4.0)
[2023-06-21 17:19] LABS: Estimated Average Glucose 117 mg/dL; Hemoglobin A1c % 5.7 % (<6.0)
[2023-06-25 14:44] LABS: Vitamin D 25-OH, D2 <4 ng/mL; Vitamin D 25-OH, D3 39 ng/mL; Vitamin D 25-OH, Total 39 ng/mL (30-100)
== END 2023-06-21 14:31 | disposition home or self-care (01) ==
LOC: HO.HMGCLDS 14:30
PROVIDERS: PCP Internal Medicine; Visit Provider Internal Medicine
DX: G44.89 Other headache syndrome (principal); M25.561 Pain in right knee; M25.562 Pain in left knee; G89.29 Other chronic pain; J45.40 Moderate persistent asthma, uncomplicated; R10.13 Epigastric pain; F43.10 Post-traumatic stress disorder, unspecified; F32.2 Major depressive disorder, single episode, severe without psychotic features
CPT/HCPCS: 36415; 80053; 80061; 82306; 83036; 84443; 85025

== ENCOUNTER 2023-07-13 08:45 | Outpatient (AMB) | payer OTHER, SELFPAY ==
--- NOTE | 2023-07-13 08:53 | MHC.PC.OV ---
Intake Visit Reasons: Discuss Results~ [phone] Allergies No Known Allergies [No Known Allergies*] Allergy (Verified 07/13/23 10:06) Medication List - Last Reconciled 07/13/23 by Harris Fernandez MD amitriptyline 25 mg PO BEDTIME 90 days bupropion HCl XL 150 mg PO QAM celecoxib 200 mg PO DAILY 90 days citalopram 20 mg PO DAILY duloxetine 30 mg PO BID gabapentin 600 mg PO TID 30 days mirtazapine 7.5 mg PO BEDTIME PRN mometasone-formoterol 200-5 mcg/actuation (Dulera) 2 puffs inhalation BID 30 days omeprazole 40 mg PO DAILY 90 days prazosin 5 mg PO BEDTIME [Shower seat As directed Right foot 4th and 5th metatarsal fractures ] sumatriptan succinate 25 mg PO DAILY 30 days tizanidine 4 mg PO TID PRN trazodone 50 - 100 mg PO BEDTIME PRN Tobacco use date assessed: 07/13/23 Dental Screening Dental Screen Date: 07/13/23 Did you have a dental visit in the last 12 months?: Yes Did you have a dental problem in the last 6 months where you did not have access to dental care?: No Was dental information given to patient?: Patient has dentist HPI Discuss Results~ [phone] HPI Details This is a telemedicine visit patient is a 58-year-old female, we set up this time to go over her labs which came back WNL, except one Liver enzyme, it was normal in the past mild elevation, dicussed with patient she says her sister who is 64 years old has some heart blockage and so she was concerned about her labs Pt dont have any Chest pain we will do EKG at her up coming visit in August [facility] Medical History Spondylosis of cervical spine Bursitis of right shoulder Headache syndrome Strain of right trapezius muscle Shoulder pain, right Surgical History Ankle fracture, left Family History Father No problems noted. Mother No problems noted. Brother No problems noted. Brother No problems noted. Brother No problems noted. Brother No problems noted. Brother No problems noted. Son No problems noted. Son No problems noted. Son No problems noted. Daughter No problems noted. Daughter No problems noted. Other Mental health disorder Substance use disorder Social History Housing: Apartment Alcohol intake: never Patient Tobacco Use Status: Former Tobacco user e-Cigarette/Vaping Use: Never Used Second Hand Smoke Exposure: No service: No Current occupational status: employed and unemployed Current occupation: right handed Cognitive needs: No Hearing needs: No Vision needs: Yes Questionnaire Thrive Questionnaire Date Thrive assessed: 06/16/23 AUDIT C Alcohol Use Questionnaire (AUDIT-C) 1. How often do you have a drink containing alcohol?: Never 3. How often do you have six or more drinks on one occasion?: Never Total Score: 0 Score Reviewed/Action Taken: Yes PETE-7 AMB Questionnaire PETE-7 Date PETE - 7 assessed: 06/16/23 Source: Developed by Drs. Anton Bocanegra, Aline Villegas, Martín Dickson and colleagues, with an educational ryan from [employer]. Review of Systems Const Denies chills and Denies fever(s) ENT Denies epistaxis and Denies nasal discharge Card Denies chest pain Resp Denies chest congestion, Denies cough and Denies hemoptysis GI Denies diarrhea and Denies nausea Skin/Breast Denies rash Neuro Reports no additional complaints Psych Reports no additional complaints Endo Reports no additional complaints Physical exam (Primary Care) Tobacco/Smoking Status: Tobacco use Status Tobacco use date assessed 06/16/23 07/13/23 08:53 Patient Tobacco Use Status Former Tobacco user 07/13/23 08:53 e-Cigarette/Vaping Use Never Used 07/13/23 08:53 Thrive Assessment: Date of Thrive Assessment Date Thrive assessed 06/16/23 07/13/23 08:53 Telehealth Telehealth Telehealth Platform: [facility] Location of provider rendering services: practice address Location of patient: address on file Patient Identification confirmed using: Name, : Yes Telehealth method: voice only Patient verbally consented to treatment: Yes Patient verbally consented to billing insurance company: Yes Patient informed of any privacy concerns related to visit: Yes Minutes spent on Phone/Video with Pt.: 13 Assessment and Plan Assessment & Plan (1) LFT elevation: Code(s): R79.89 - Other specified abnormal findings of blood chemistry Plan This is a telemedicine visit patient is a 58-year-old female, we set up this time to go over her labs which came back WNL, except one Liver enzyme, it was normal in the past mild elevation, dicussed with patient she says her sister who is 64 years old has some heart blockage and so she was concerned about her labs Pt dont have any Chest pain we will do EKG at her up coming visit in August Coding Level of Care Code Tele Est Pt Level 3 (01906) Diagnoses LFT elevation R79.89
== END 2023-07-13 13:43 | disposition home or self-care (01) ==
LOC: HO.HMGC 08:45
PROVIDERS: PCP Internal Medicine; Visit Provider Internal Medicine
DX: R79.89 Other specified abnormal findings of blood chemistry (principal)
CPT/HCPCS: 99213

== ENCOUNTER 2023-07-19 15:12 | Outpatient (AMB) | payer OTHER, SELFPAY ==
--- NOTE | 2023-07-19 15:14 | A.OFFVIS_ITS ---
Vital Signs 07/19/23 15:19 Height 5 ft 6 in Weight 253 lb BMI 40.8 BP 132/74 Blood Pressure Location Lt radial Position Sitting Respiration 16 Pulse 88 Pulse Source Pulse Oximeter Pulse Oximetry (%) 95 Oxygen Delivery Method Room Air Intake Visit Reasons: medication review/ last seen 12/2021 Intake Note: Patient comes in to review medication. Reports pain 09/29. Allergies No Known Allergies [No Known Allergies*] Allergy (Verified 07/19/23 15:20) HPI Comments Details: Radha is back in my office with request to help with her knee pain again. She has bilateral patellofemoral knees osteoarthritis. She is morbidly obese. She is now very close to the age when she will be eligible for total knee replacement. She was under care of Dr. Celaya in the past. I recommended her to get a consult from Dr. Celaya. Meanwhile I prescribed her gabapentin with 12 refills. I will be glad to continue this medication provided that there is no side effects and there is no complications of this medication she is taking moderate doses of 600 mg t.i.d.. She also would like to try braces for patellofemoral arthritis. I signed the prescription and we will schedule a visit for her to try and adjust the braces. Next appointment is as needed. When the prescription will I will see the patient again. Prior: Was under observation in this office with cervicalgia. However forward came pain in bilateral knees, some limitation of the mobility due to severe knee pain.? She was under care of Dr. Celaya and she received right knee steroid injection.? She was requesting to preauthorize for Hyalgan/Synvisc injection and apparently that was not done for her.? She was with my office ith intention to discuss genicular nerve blocks versus Synvisc injection. Unfortunately her insurance do not cover genicular nerve blocks [facility] Medical History Spondylosis of cervical spine Bursitis of right shoulder Headache syndrome Strain of right trapezius muscle Shoulder pain, right Surgical History Ankle fracture, left Family History Father No problems noted. Mother No problems noted. Brother No problems noted. Brother No problems noted. Brother No problems noted. Brother No problems noted. Brother No problems noted. Son No problems noted. Son No problems noted. Son No problems noted. Daughter No problems noted. Daughter No problems noted. Other Mental health disorder Substance use disorder Social History Housing: Apartment Alcohol intake: never Patient Tobacco Use Status: Former Tobacco user e-Cigarette/Vaping Use: Never Used Second Hand Smoke Exposure: No service: No Current occupational status: employed and unemployed Current occupation: right handed Cognitive needs: No Hearing needs: No Vision needs: Yes Review of Systems Const All systems reviewed & are unremarkable except as noted in HPI and below ENT Reports Normal hearing present Neuro Reports Normal hearing present and Denies Sensory deficit (Neuro) Physical Exam Vital Signs: Last Vital Signs Pulse 88 07/19/23 15:19 Resp 16 07/19/23 15:19 BP 132/74 07/19/23 15:19 Pulse Ox 95 07/19/23 15:19 Oxygen Delivery Method Room Air 07/19/23 15:19 BMI result Body Mass Index 40.8 Const General: comfortable, no acute distress, well developed, alert and awake Eyes Pupils: Equal, round and reactive pupils present EOM: EOMs intact bilaterally Chest Chest palpation & inspection: normal inspection of the chest Resp Effort & Inspection: normal respiratory effort, able to speak in complete sentences, normal respiratory pattern, no audible wheezes and no cough Cardio Jugular venous distension: no JVD Neuro Cranial nerves: Yes Equal, round and reactive pupils present and Yes Normal hearing present Sensory Exam: No Sensory deficit (Neuro) Extrem Other: Limited range of motion due to pain. Passive range of motion without changes. Tenderness of palpation of bilateral knees right more than left. No cogwheel sensation on the flexion of the knees. No crepitus on the sensation of the knees. Psych Speech and movement: Normal speech and movement present Affect: normal affect Attitude: cooperative Thought process: Normal thought process present Thought content: Normal thought content present Insight: Good insight present (Psych) Judgement: Good judgement present (Psych) Assessment & Plan Assessment & Plan (1) Chronic patellofemoral pain of both knees: Code(s): M25.561 - Pain in right knee; M25.562 - Pain in left knee; G89.29 - Other chronic pain Category: Medical Plan: Chronic patellofemoral knee pain. Steroid injections have only been minimally helpful. The patient wants to try knee braces. Patellar femoral braces will be pre ordered. Gabapentin will be refilled. Next appointment is as needed. Next refill of the gabapentin in 1 year. Medications: Refilled gabapentin 600 mg PO TID 90 tabs 12RF 30 days Coding Level of Care Code Est Pt Level 3 (30239) Diagnoses Chronic patellofemoral pain of both knees M25.561; M25.562; G89.29
[2023-07-19 15:19] VITALS: BP 132/74; PULSE 88; RESP 16; O2SAT 95; BMI 40.8
== END 2023-07-19 15:36 | disposition home or self-care (01) ==
PROVIDERS: PCP Internal Medicine; Visit Provider Anesthesiology
DX: M25.561 Pain in right knee (principal); M25.562 Pain in left knee; G89.29 Other chronic pain
CPT/HCPCS: 99213

== ENCOUNTER → 2023-07-19 15:12 | Outpatient (BNVA) | payer OTHER, SELFPAY | PROVIDERS: PCP Internal Medicine; Visit Provider Anesthesiology | DX: M25.561 Pain in right knee (principal); M25.562 Pain in left knee; G89.29 Other chronic pain | CPT/HCPCS: 99212 ==

== ENCOUNTER 2024-05-10 12:19 | Outpatient (AMB) | payer OTHER, SELFPAY ==
--- NOTE | 2024-05-10 12:22 | A.OFFPC_ITS ---
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 Required: No Accompanied by: Self / Same As Patient Allergies No Known Allergies [No Known Allergies*] Allergy (Verified 05/10/24 12:23) Medication List - Last Reconciled 05/10/24 by Harris Fernandez MD amitriptyline 25 mg PO BEDTIME 90 days bupropion HCl XL 150 mg PO QAM celecoxib 200 mg PO DAILY 90 days citalopram 20 mg PO DAILY duloxetine 30 mg PO BID gabapentin 600 mg PO TID 30 days mirtazapine 7.5 mg PO BEDTIME PRN mometasone-formoterol 200-5 mcg/actuation (Dulera) 2 puffs inhalation BID 30 days omeprazole 40 mg PO DAILY 90 days prazosin 5 mg PO BEDTIME [Shower seat As directed Right foot 4th and 5th metatarsal fractures ] sumatriptan succinate 25 mg PO DAILY 30 days tizanidine 4 mg PO TID PRN trazodone 150 mg PO BEDTIME PRN Tobacco use date assessed: 05/10/24 Dental Screening Dental Screen Date: 05/10/24 Did you have a dental visit in the last 12 months?: Yes Did you have a dental problem in the last 6 months where you did not have access to dental care?: No Was dental information given to patient?: Patient has dentist HPI med review HPI Details Patient is a 58-year-old female came in today for her follow-up appointment I see that she has not had labs in a while We will be booking physical exam in three-month patient is to do labs before visit fasting She has Impaired fasting sugar BMI is elevated at 41.2 patient is trying to control her diet and lose weight Asthma: Manageable with maintenance inhaler patient is on Dulera and ProAir as needed GERD: Stable with omeprazole . Migraine headache: Continue amitriptyline 25 mg at night and sumatriptan as needed for headache. Psychiatric medication through Psychiatry Patient has history of PTSD, major depression, anxiety I have printed her medication list and handed to her so she can reviewe it with her psychiatrist I did the same last time as well Muscle relaxer is through pain management along with gabapentin Multiple joint arthritis feeling better with Celebrex 200 mg daily - She reports being frequently depressed and impacted by family stressors. Smackover of Care Patient is currently under the care of a psychiatrist and has recently established a relationship via Zoom. Pain management [facility] Patient Instructions - Discuss medication regimen with psychi mallory to ensure they are aware of all medications currently being taken. - Consider lifestyle modifications to ai d weight management. - Continue taking prescribed medications and be mindful of potential drug interactions. - Return for follow-up in four months an d bring an updated list of medications. Review of Systems General: No fever no chills neurological: No headaches no dizziness ear nose throat: No sore throat no hearing difficulty no ear pain cardiovascular: No syncope, no chest pain, no palpitations gastrointestinal: No nausea vomiting or diarrhea endocrine: No polyuria polydipsia no heat intolerance genitourinary: No dysuria skin: No new complaints Physical Exam general: No acute distress HEENT: No acute findings neck: Supple respiratory system: Able to talk in full sentences, no audible wheeze no stridor cardiovascular: S1-S2 gastrointestinal: No pain extremities: No new findings [employer]: Alert awake oriented x3 motor sensory intact skin: Normal turgor [facility] Medical History Spondylosis of cervical spine Bursitis of right shoulder Headache syndrome Strain of right trapezius muscle Shoulder pain, right Surgical History Ankle fracture, left Family History Father No problems noted. Mother No problems noted. Brother No problems noted. Brother No problems noted. Brother No problems noted. Brother No problems noted. Brother No problems noted. Son No problems noted. Son No problems noted. Son No problems noted. Daughter No problems noted. Daughter No problems noted. Other Mental health disorder Substance use disorder Social History Housing: Apartment Alcohol intake: never Patient Tobacco Use Status: Former Tobacco user e-Cigarette/Vaping Use: Never Used Second Hand Smoke Exposure: No service: No Current occupational status: employed and unemployed Current occupation: right handed Cognitive needs: No Hearing needs: No Vision needs: Yes Questionnaire Thrive Questionnaire Date Thrive assessed: 06/16/23 AUDIT C Alcohol Use Questionnaire (AUDIT-C) 1. How often do you have a drink containing alcohol?: Never 3. How often do you have six or more drinks on one occasion?: Never Total Score: 0 Score Reviewed/Action Taken: Yes PETE-7 AMB Questionnaire PETE-7 Date PETE - 7 assessed: 06/16/23 Feeling nervous, anxious, or on edge: 2 = More than half the days Not being able to stop or control worryin = Several days Worrying too much about different things: 1 = Several days Trouble relaxin = More than half the days Being so restless that it is hard to sit still: 2 = More than half the days Becoming easily annoyed or irritable: 2 = More than half the days Feeling afraid as if something awful might happen: 1 = Several days Total PETE-7 score (0-4 normal; 5-9 mild; 10-14 moderate; 15-21 severe): 11 Source: Developed by Drs. Anton Bocanegra, Aline Villegas, Martín Dickson and colleagues, with an educational ryan from [employer]. PETE-7 Assessment Billing PETE-7 Assessment Tool: PETE-7 Assessment 67544 Physical exam (Primary Care) Vital Signs: Last Vital Signs Pulse 78 05/10/24 12:23 BP 130/72 05/10/24 12:23 Pulse Ox 96 05/10/24 12:23 BMI result Body Mass Index 41.2 Tobacco/Smoking Status: Tobacco use Status Tobacco use date assessed 05/10/24 05/10/24 12:28 Patient Tobacco Use Status Former Tobacco user 05/10/24 12:28 e-Cigarette/Vaping Use Never Used 05/10/24 12:28 Thrive Assessment: Date of Thrive Assessment Date Thrive assessed 06/16/23 05/10/24 12:28 Coding Level of Care Code Est Pt Level 4 (82676) Complex EM visit Add On G2211 Diagnoses Headache syndrome G44.89 Dyspepsia R10.13 Morbid obesity due to excess calories E66.01 Chronic pain of both knees M25.561; M25.562; G89.29 Moderate persistent asthma without complication J45.40 Asthma complication type: uncomplicated PTSD (post-traumatic stress disorder) F43.10 Major depress dis, severe F32.2 At risk for polypharmacy Z91.89 Additional Codes PETE-7 Assessment Billing - PETE-7 Assessment Tool: PETE-7 Assessment 24507 ([id number]) Assessment & Plan Assessment & Plan (1) Headache syndrome: Code(s): G44.89 - Other headache syndrome Category: Medical (2) Dyspepsia: Code(s): R10.13 - Epigastric pain Category: Medical (3) Morbid obesity due to excess calories: Code(s): E66.01 - Morbid (severe) obesity due to excess calories Category: Medical (4) Chronic pain of both knees: Code(s): M25.561 - Pain in right knee; M25.562 - Pain in left knee; G89.29 - Other chronic pain Category: Medical (5) Asthma, moderate persistent: Code(s): J45.40 - Moderate persistent asthma, uncomplicated Category: Medical Qualifiers: Asthma complication type: uncomplicated Qualified Code(s): J45.40 - Moderate persistent asthma, uncomplicated (6) PTSD (post-traumatic stress disorder): Code(s): F43.10 - Post-traumatic stress disorder, unspecified Category: Medical (7) Major depress dis, severe: Code(s): F32.2 - Major depressive disorder, single episode, severe without psychotic features Category: Medical (8) At risk for polypharmacy: Code(s): Z91.89 - Other specified personal risk factors, not elsewhere classified Category: Medical Plan Patient is a 58-year-old female came in today for her follow-up appointment I see that she has not had labs in a while We will be booking physical exam in three-month patient is to do labs before visit fasting She has Impaired fasting sugar BMI is elevated at 41.2 patient is trying to control her diet and lose weight Asthma: Manageable with maintenance inhaler patient is on Dulera and ProAir as needed GERD: Stable with omeprazole . Migraine headache: Continue amitriptyline 25 mg at night and sumatriptan as needed for headache. Psychiatric medication through Psychiatry Patient has history of PTSD, major depression, anxiety I have printed her medication list and handed to her so she can reviewe it with her psychiatrist I did the same last time as well Muscle relaxer is through pain management along with gabapentin Multiple joint arthritis feeling better with Celebrex 200 mg daily - She reports being frequently depressed and impacted by family stressors. Smackover of Care Patient is currently under the care of a psychiatrist and has recently established a relationship via Zoom. Pain management [facility] Patient Instructions - Discuss medication regimen with psychiatrist to ensure they are aware of all medications currently being taken. - Consider lifestyle modifications to aid weight management. - Continue taking prescribed medications and be mindful of potential drug interactions. - Return for follow-up in four months and bring an updated list of medications. Medications: Refilled celecoxib 200 mg PO DAILY 90 days 90 caps 0RF knee pain G89.29 - Other chronic pain, M25.561 - Pain in right knee, M25.562 - Pain in left knee omeprazole 40 mg PO DAILY 90 days 90 caps 0RF R10.13 - Epigastric pain sumatriptan succinate 25 mg PO DAILY 30 days 10 tabs 2RF G44.89 - Other headache syndrome amitriptyline 25 mg PO BEDTIME 90 days 90 tabs 0RF G44.89 - Other headache syndrome, M25.511 - Pain in right shoulder mometasone-formoterol 200-5 mcg/actuation (Dulera) 2 puffs inhalation BID 30 days 8.8 grams 2RF J45.40 - Moderate persistent asthma, uncomplicated
[2024-05-10 12:23] VITALS: BP 130/72; PULSE 78; O2SAT 96; BMI 41.2
== END 2024-05-10 12:46 | disposition home or self-care (01) ==
LOC: HO.HMCC 12:19
PROVIDERS: PCP Internal Medicine; Visit Provider Internal Medicine
DX: G44.89 Other headache syndrome (principal); E66.01 Morbid (severe) obesity due to excess calories; F32.2 Major depressive disorder, single episode, severe without psychotic features; Z68.41 Body mass index [BMI] 40.0-44.9, adult; R10.13 Epigastric pain; M25.561 Pain in right knee; M25.562 Pain in left knee; G89.29 Other chronic pain; J45.40 Moderate persistent asthma, uncomplicated; F43.10 Post-traumatic stress disorder, unspecified; Z91.89 Other specified personal risk factors, not elsewhere classified

== ENCOUNTER → 2024-05-10 12:19 | Outpatient (BNVA) | payer OTHER, SELFPAY | PROVIDERS: PCP Internal Medicine; Visit Provider Internal Medicine | DX: G44.89 Other headache syndrome (principal); R10.13 Epigastric pain; E66.01 Morbid (severe) obesity due to excess calories; M25.561 Pain in right knee; M25.562 Pain in left knee; G89.29 Other chronic pain; J45.40 Moderate persistent asthma, uncomplicated; F43.10 Post-traumatic stress disorder, unspecified; F32.2 Major depressive disorder, single episode, severe without psychotic features; Z91.89 Other specified personal risk factors, not elsewhere classified | CPT/HCPCS: 96127; 99212 ==